=== PATIENT | male | born 1970 | race Caucasian/White ===

== ENCOUNTER 2024-01-11 18:42 | Emergency (ER) | payer SELFPAY ==
[~2024-01-11] VITALS: Ht 172.7 cm; Wt 88.6 kg
[2024-01-11 18:48] VITALS: BP 171/110; PULSE 102; RESP 18; TEMP 98.2
[2024-01-11] MEDS ORDERED: LIDOCAINE 1% 10 ML VIAL ONE (18:53)
[2024-01-11] MEDS ORDERED: CEPH-558 PO (20:22)
[2024-01-11] MEDS ORDERED: ACET-66 PO (20:22)
== END 2024-01-11 20:44 | disposition home or self-care (01) ==
LOC: EMS 18:42
DX: S01.81XA Laceration without foreign body of other part of head, initial encounter (principal); F17.210 Nicotine dependence, cigarettes, uncomplicated; W01.0XXA Fall on same level from slipping, tripping and stumbling without subsequent striking against object, initial encounter; Y93.89 Activity, other specified; Y92.89 Other specified places as the place of occurrence of the external cause; Y99.8 Other external cause status
CPT/HCPCS: 99284; 70450; 70486; 12014; J3490